=== PATIENT | male | born 1990 | race American Indian/Alaskan Native ===

== ENCOUNTER 2017-04-25 09:15 | Emergency (ER) | payer BC ==
[2017-04-25] MEDS ORDERED: CATAPRES ONE (10:06)
[2017-04-25] MEDS ORDERED: CATAPRES PO ONE (10:11)
[2017-04-25 10:59] LABS: Anion Gap 19 mmol/L; BUN/Creatinine Ratio 15.55; Blood Urea Nitrogen 14 mg/dL (9-20); Calcium 9.5 mg/dL (8.4-10.2); Carbon Dioxide 25 mmol/L (22-30); Chloride 99.6 mmol/L (98-107); Glucose 98 mg/dL (75-100); Potassium 4.2 mmol/L (3.6-5.0); Sodium 139 mmol/L (137-145)
[2017-04-25 11:03] LABS: Basophils % (Auto) 1.2 % (0.0-1.8); Eosinophils % (Auto) 2.9 % (0.0-4.3); Hematocrit 43.2 % (35.5-45.6); Hemoglobin 14.6 gm/dl (11.8-15.2); Mean Corpuscular HGB Conc 34 % (32-34); Mean Corpuscular Hemoglobin 29 pg (28-32); Mean Corpuscular Volume 86 fl (84-94); Platelet Count 242 K/mm3 (140-440); Red Blood Count 5.04 M/mm3 (3.65-5.03); Red Cell Distribution Width 13.7 % (13.2-15.2); White Blood Count 6.8 K/mm3 (4.5-11.0)
[2017-04-25] MEDS ORDERED: NORMODYNE IV ONE ×2 (11:42→13:17)
[2017-04-25] MEDS ORDERED: NORVASC PO ONE (13:17)
--- NOTE | 2017-04-25 13:19 | Admit Criteria Form ---
Admission Criteria Documentation: HYPERTENSION Clinical Indications for Admission to Inpatient Care ( Place "X" for any and all applicable criteria): Admission is indicated for ANY ONE of the following(1)(2)(3)(4): [ ]I. Hypertensive emergency, with evidence of acute and progressing target organ disease as indicated by ANY ONE of the following: [ ]a) Hypertensive encephalopathy (eg, confusion, altered mental status) [ ]b) Cerebral infarction [ ]c) Intracranial hemorrhage [ ]d) Myocardial ischemia or infarction [ ]e) Pulmonary edema [ ]f) Aortic dissection [ ]g) Seizure [ ]h) Acute renal insufficiency [ ]i) Papilledema [ ]j) Microangiopathic hemolytic anemia [ ]II. Adrenergic crisis (eg, severe hypertension due to pheochromocytoma crisis, cocaine or amphetamine intoxication, or clonidine withdrawal) [X ]III. Severe hypertension (SBP greater than 180 mmHg or DBP greater than 110 mmHg or greater than the 95th percentile for age, gender, and height in pediatric patients) that cannot be controlled (eg, to SBP less than 160 mmHg and DBP less than 100 mmHg in adults) by treatment with oral medication in emergency department or observation care Extended stay beyond goal length of stay may be needed for(11)(12)(13): [ ]a) Persistent hypertensive encephalopathy [ ]b) Continuation of pulmonary edema [ ]c) Recurring or persistent severe hypertension [ ]d) Target organ damage (eg, angina, stroke, aortic dissection) [ ]e) Associated renal insufficiency The original [employer] content created by [employer] has been revised. The portions of the content which have been revised are identified through the use of italic text or in bold, and [facility] has neither reviewed nor approved the modified material. All other unmodified content is copyright [employer]. Please see references footnoted in the original [employer] edition 2016
[2017-04-25 14:17] VITALS: BP 170/106
--- NOTE | 2017-04-25 14:36 | Emergency Department Report ---
Entered by MISTY SINGLETON, acting as scribe for RADHA KEITA PA. 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 Patient's blood pressure was 193 /132 in triage. Denies headache, fever, chills, chest pain, SOB, back pain, dizziness, blurry vision, numbness, tingling, nausea, and vomiting. Notes FHx of HTN. Denies previous diagnosis of HTN. NKDA. 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 denies: fever, chills, chest pain, shortness of breath, rash, nasuea, abdominal pain - Related Data Previous Rx's Medication Instructions Recorded Last Taken Type Hydrochlorothiazide [HCTZ] 25 mg PO QDAY #30 tablet 04/25/17 Unknown Rx amLODIPine [Norvasc] 10 mg PO DAILY #30 tab 04/25/17 Unknown Rx Allergies Allergy/AdvReac Type Severity Reaction Status Date / Time No Known Allergies Allergy Unverified 04/25/17 09:59 ED Review of Systems Comment: All other systems reviewed and negative Constitutional: no symptoms reported. denies: chills, fever Eyes: denies: eye pain, eye discharge, vision change ENT: denies: ear pain, throat pain Respiratory: no symptoms reported. denies: cough, shortness of breath, wheezing Cardiovascular: denies: chest pain, palpitations, edema, syncope Endocrine: no symptoms reported Gastrointestinal: denies: abdominal pain, nausea, vomiting, diarrhea Genitourinary: denies: urgency, dysuria Musculoskeletal: denies: back pain, joint swelling, arthralgia Skin: denies: rash, lesions Neurological: denies: headache, weakness, numbness, paresthesias, confusion, abnormal gait, vertigo, other (tingling) Psychiatric: denies: anxiety, depression Hematological/Lymphatic: denies: easy bleeding, easy bruising ED Past Medical Hx - Past Medical History Previous Medical History?: No - Surgical History Past Surgical History?: No - Family History Family history: hypertension - Social History Smoking Status: Never Smoker Substance Use Type: Alcohol - Medications Home Medications: Home Medications Medication Instructions Recorded Confirmed Last Taken Type Hydrochlorothiazide [HCTZ] 25 mg PO QDAY #30 tablet 04/25/17 Unknown Rx amLODIPine [Norvasc] 10 mg PO DAILY #30 tab 04/25/17 Unknown Rx ED Physical Exam - General Limitations: No Limitations General appearance: alert, in no apparent distress - Head Head exam: Present: atraumatic, normocephalic - Eye Eye exam: Present: normal appearance, PERRL, EOMI Pupils: Present: normal accommodation - Expanded Eye Exam Expanded Eyelids: Normal Inspection: Right (normal bilaterally) Pupils: Regular, Round: Bilateral, Reactive: Bilateral Sclera/Conjunctival: Normal Inspection: Bilateral Anterior chamber: Normal Inspection: Bilateral Posterior chamber: Normal Inspection: Bilateral - ENT ENT exam: Present: normal exam, normal orophraynx, mucous membranes moist - Neck Neck exam: Present: normal inspection, full ROM. Absent: tenderness, meningismus, lymphadenopathy - Expanded Neck Exam Expanded Neck exam: Absent: tenderness, midline deformity, anterior neck swelling, carotid bruit - Respiratory Respiratory exam: Present: normal lung sounds bilaterally (clear to auscultation bilaterally). Absent: respiratory distress, wheezes, rales, rhonchi, stridor, chest wall tenderness, accessory muscle use, decreased breath sounds - Cardiovascular Cardiovascular Exam: Present: regular rate, normal rhythm, normal heart sounds. Absent: JVD - GI/Abdominal GI/Abdominal exam: Present: soft, normal bowel sounds. Absent: distended, tenderness, guarding, rebound, rigid, organomegaly, mass, bruit, pulsatile mass , hernia - Extremities Exam Extremities exam: Present: normal inspection, full ROM, normal capillary refill. Absent: tenderness, pedal edema, joint swelling, calf tenderness - Back Exam Back exam: Present: normal inspection, full ROM. Absent: tenderness, CVA tenderness (R), CVA tenderness (L), muscle spasm, paraspinal tenderness, vertebral tenderness, rash noted - Neurological Exam Neurological exam: Present: alert, oriented X3, normal gait, reflexes normal. Absent: motor sensory deficit - Expanded Neurological Exam Expanded Neurological exam: Absent: innattentive, memory loss-remote event, memory loss- recent event, ataxia, receptive aphasia, expressive aphasia, total aphasia, tremor, protecting the airway Patient oriented to: Present: person, place, time Speech: Present: fluid speech (normal tone of speech) Cranial nerves: EOM's Intact: Normal, Gag Reflex: Normal, Tongue Deviation: Normal, Facial Sensation: Normal, Facial Palsy with Forehead Movement: Normal, Facial Palsy without Forehead Movement: Normal Cerebellar function: Romberg: Normal Upper motor neuron: Pronator Drift: Normal, Sensory Extinction: Normal Sensory exam: Upper Extremity Light Touch: Normal, Upper Extremity Pin Prick: Normal, Upper Extremity Temperature: Normal, UE 2 Point Discrimination: Normal, Lower Extremity Light Touch: Normal, Lower Extremity Pin Prick: Normal, Lower Extremity Temperature: Normal, LE 2 Point Discrimination: Normal Motor strength exam: RUE: 5, LUE: 5, RLE: 5, LLE: 5 DTR: bicep (R): 2+, bicep (L): 2+, tricep (R): 2+, tricep (L): 2+, knee (R): 2+ , knee (L): 2+, ankle (R): 2+, ankle (L): 2+ Best Eye Response ([place]): (4) open spontaneously Best Motor Response ([place]): (6) obeys commands Best Verbal Response ([place]): (5) oriented [place] Total: 15 - Psychiatric Psychiatric exam: Present: normal affect, normal mood - Skin Skin exam: Present: warm, dry, intact, normal color. Absent: rash ED Course Vital Signs 04/25/17 04/25/17 04/25/17 09:56 10:12 11:16 Temperature 98.5 F Pulse Rate 92 H 92 H Respiratory 16 Rate Blood Pressure 193/132 193/132 Blood Pressure 186/130 [Left] O2 Sat by Pulse 99 Oximetry 04/25/17 04/25/17 04/25/17 12:01 12:03 13:10 Temperature Pulse Rate 92 H 88 Respiratory Rate Blood Pressure 186/130 Blood Pressure 180/120 182/122 [Left] O2 Sat by Pulse Oximetry Vital Signs 04/25/17 04/25/17 04/25/17 09:56 10:12 11:16 Temperature 98.5 F Pulse Rate 92 H 92 H Respiratory 16 Rate Blood Pressure 193/132 193/132 Blood Pressure 186/130 [Left] O2 Sat by Pulse 99 Oximetry 04/25/17 04/25/17 04/25/17 12:01 12:03 13:10 Temperature Pulse Rate 92 H 88 Respiratory Rate Blood Pressure 186/130 Blood Pressure 180/120 182/122 [Left] O2 Sat by Pulse Oximetry 04/25/17 04/25/17 04/25/17 13:30 13:31 14:16 Temperature Pulse Rate 88 88 Respiratory Rate Blood Pressure 182/122 182/122 Blood Pressure 170/106 [Left] O2 Sat by Pulse Oximetry - Reevaluation(s) Reevaluation #1: 04/25/17 13:16 Blood pressure elevated and patient was given clonidine 0.2 mg and blood pressure checked after one hour and still elevated therefore Dr. Miller ordered patient to have labetalol IV. Pressure checked 40 minutes after labetalol given and still elevated therefore give another dose of IV labetalol. Reevaluation #2: 04/25/17 13:17 labetolol Reevaluation #3: 04/25/17 14:23 Patient blood pressure is now 170/109. He remains asymptomatic. 04/25/17 14:24 Reevaluation #4: 04/25/17 14:30 Lab Results 04/25/17 04/25/17 Range/Units 10:29 10:29 WBC 6.8 (4.5-11.0) K/mm3 RBC 5.04 H (3.65-5.03) M/mm3 Hgb 14.6 (11.8-15.2) gm/dl Hct 43.2 (35.5-45.6) % MCV 86 (84-94) fl MCH 29 (28-32) pg MCHC 34 (32-34) % RDW 13.7 (13.2-15.2) % Plt Count 242 (140-440) K/mm3 Lymph % (Auto) 27.5 (13.4-35.0) % [place] % (Auto) 9.5 H (0.0-7.3) % Eos % (Auto) 2.9 (0.0-4.3) % Baso % (Auto) 1.2 (0.0-1.8) % Lymph # 1.9 (1.2-5.4) K/mm3 [place] # 0.7 (0.0-0.8) K/mm3 Eos # 0.2 (0.0-0.4) K/mm3 Baso # 0.1 (0.0-0.1) K/mm3 Seg Neutrophils % 58.9 (40.0-70.0) % Seg Neutrophils # 4.0 (1.8-7.7) K/mm3 Sodium 139 (137-145) mmol/L Potassium 4.2 (3.6-5.0) mmol/L Chloride 99.6 (98-107) mmol/L Carbon Dioxide 25 (22-30) mmol/L Anion Gap 19 mmol/L BUN 14 (9-20) mg/dL Creatinine 0.9 (0.8-1.5) mg/dL Estimated GFR > 60 ml/min BUN/Creatinine Ratio 15.55 % Glucose 98 (75-100) mg/dL Calcium 9.5 (8.4-10.2) mg/dL ED Recheck MDM - Medical Decision Making Collaborated with Dr. Miller on patient presentation and blood pressure management. She is aware that patient blood pressure finally came down to 170/ 106. 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 Patient denies any history of high blood pressure but he said he does have a family history of high blood pressure. BMP and CBC drawn and within normal limits this was discussed with patient. Patient is neurologically intact and asymptomatic with elevated blood pressure. Initially patient given clonidine 0.2 mg by mouth for blood pressure 193/132. His blood pressure remained elevated here for INT started and he was given labetalol 10 mg IV up and recheck his blood pressure remains elevated he was given another 10 mg of labetalol IV and Norvasc 10 mg by mouth. Blood pressure recheck after 1 hour at 170/106. Patient remains asymptomatic throughout ED stay. I discussed the diagnosis and treatment plan. 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 Osmar Vail. I instructed him to call today to schedule an appointment for complete physical call and follow-up elevated blood pressure with hypertension. I instructed him that he needs to keep a blood pressure log daily and bring to his visit with primary care doctor. Patient is stable and discharged with prescription for Norvasc and HCTZ. ED Disposition Clinical Impression: Hypertension Qualifiers: Hypertension type: essential hypertension Qualified Code(s): I10 - Essential ( primary) hypertension Disposition: - TO HOME OR SELFCARE Is pt being admited?: No Does the pt Need Aspirin: No Condition: Stable Instructions: Hypertension (ED), How to Take a Blood Pressure (ED), DASH Eating Plan (ED), Heart Healthy Diet (ED), Low Sodium Diet (ED) Additional Instructions: Keep a blood pressure and take to primary care physician visit. Take blood pressure medications as instructed. Follow diet and discharge instruction paperwork. If you develop, headache, chest pain, shortness of breath, dizziness, blurred vision and nausea vomiting please return to the emergency room SY Prescriptions: amLODIPine [Norvasc] 10 mg PO DAILY #30 tab Hydrochlorothiazide [HCTZ] 25 mg PO QDAY #30 tablet Referrals: CHRISTY VAIL MD [Staff Physician] - 04/29/17 Forms: Work/School Release Form(ED) This documentation as recorded by the ARELI lira JASMINE,accurately reflects the service I personally performed and the decisions made by me,RADHA KEITA PA.
== END 2017-04-25 14:43 | disposition home or self-care (01) ==
LOC: ED 09:15
DX: I10 Essential (primary) hypertension (principal)
CPT/HCPCS: 36415; 80048; 85025; 96374; 96376; 99283